=== PATIENT | male | born 1980 | race Caucasian/White ===

== ENCOUNTER → 2020-01-17 | Outpatient (REF) | payer MEDICAID, SELFPAY ==
[2020-01-13 08:22] VITALS: BMI 22.4
[2020-01-17 07:45] VITALS: BP 127/74; PULSE 72; RESP 18; TEMP 36.6; O2SAT 98; BMI 21.9
--- NOTE | 2020-01-17 07:53 | EKG12_ITS ---
Test Reason : MENTAL CLEARANCE Blood Pressure : / mmHG Vent. Rate : 050 BPM Atrial Rate : 050 BPM P-R Int : 144 ms QRS Dur : 092 ms QT Int : 408 ms P-R-T Axes : 074 071 063 degrees QTc Int : 371 ms Sinus bradycardia Early repolarization Otherwise normal ECG Confirmed by HAO HESS ([id number]), assignment desk editor RUDDY JARAMILLO ([id number]) on 01/21/2020 2:04:28 PM Referred By: ED Confirmed By:HAO HESS
[2020-01-17 08:14] LABS: Bacteria 0 SEEN /hpf (None Seen); Squamous Epithelial Cells - UA 0 SEEN /hpf (0-5)
[2020-01-17 08:28] LABS: Absolute Lymphocyte Count 1.44 X10^3/uL (0.83-4.51); Absolute Neutrophil Count 3.4 X10^3/uL (2.0-7.7); Basophil# 0.06 X10^3/uL; Basophil% 1.1 % (0-1); Eosinophil# 0.19 X10^3/uL; Eosinophils% 3.4 % (0-5); Hematocrit 48.8 % (40-54); Hemoglobin 15.9 g/dL (13.0-16.5); Lymphocyte # 1.44 X10^3/ul (4.0); Lymphocyte % 25.9 % (19-41); Mean Corp Hgb Conc 32.6 g/dL (32-36); Mean Corpuscular Hgb 28.8 pg (27.0-32.0); Mean Corpuscular Volume 88.4 fL (80-94); Mean Platelet Vol. 10.1 fl (6.2-12.0); Monocyte# 0.49 X10^3/uL; Monocyte% 8.8 % (0-10); NRBC Flagged by Analyzer 0 % (0-5); Neutrophil # 3.38 X10^3/uL (2.7-7.7); Neutrophil % 60.6 % (47-70); Platelet Count 224 K/mm3 (150-450); RBC Distribution Width CV 13.9 % (11.6-14.6); Red Blood Count 5.52 M/mm3 (4.6-6.2); White Blood Count 5.6 K/mm3 (4.4-11.0)
--- NOTE | 2020-01-17 08:29 | ED.VIS.GEN ---
History of Present Illness Chief Complaint: Suicidal Informant: Patient Narrative: 39-year-old male with no significant past medical history presents with concern for suicidal ideation. Patient was arrested 2 days ago and prior to being arrested had placed a bag over his head in an attempt to kill himself. States that he has felt suicidal since this time in the [facility] but is just now alerting staff to this issue. Denies any further attempts. States he has felt suicidal before in the past. Has no current plan at this time given his incarceration. Denies any drugs or alcohol. Past Medical History - Allergies and Home Meds Allergies/Adverse Reactions: Allergies No Known Allergies Allergy (Verified 01/17/20 07:47) Primary Care Physician: [facility] Doctor,Out of [NON-STAFF] - Prior records reviewed: Yes Past Medical History: None Surgical History: no surgical history Smoking Status: Current some day smoker Alcohol: None Drugs: None Review of Systems General: Denies: Chills, Fever, Sweats Eyes: Denies: Visual changes - bilaterally, Diplopia ENT: Denies: Rhinorrhea, Sore throat Cardiovascular: Denies: Chest pain, Palpitations Respiratory: Denies: Dyspnea, Cough, Dyspnea on exertion Gastrointestinal: Denies: Abdominal pain, Nausea, Vomiting, Diarrhea, Melena, Hematochezia Genitourinary: Denies: Dysuria, Hematuria, Frequency Musculoskeletal: Denies: Back pain, Extremity Pain Skin: Denies: Rash, Wounds Neurological: Denies: Headache, Weakness, Numbness Psych: Reports: Suicidal thoughts, Suicidal ideations Physical Exam Vital Signs/Narrative: Vital Signs Temp Pulse Resp BP Pulse Ox 01/17/20 07:45 98 F 72 18 127/74 H 98 Inital Vital Signs reviewed: Yes General: Well nourished, Well developed, No Acute Distress Head: Normocephalic, - - Evidence of well-healing laceration to the forehead without surrounding erythema. Eyes: Perrl, EOMI ENT: Moist mucous membranes, No rhinorrhea Neck: Supple, Nontender Cardiovascular: Regular rate, Regular rhythm, No murmurs Respiratory: No distress, CTA bilaterally, Chest nontender Abdomen: Soft, Nontender, Nondistended, Normal bowel sounds Back: Nontender, Normal Inspection Extremities: Nontender, No edema Skin: Normal color, No rash Neurological: Alert, Oriented x3, Cranial nerves II-XII grossly intact, Normal Strength, Normal Sensation Psychological: Normal affect, Normal Mood Diagnostic/Tx/Re-eval - Rhythm Strip Rhythm Strip: Sinus Bradycardia Rate: 50 Ectopy: None - EKG Initial EKG Interpretation: Sinus Bradycardia Prior: No Prior - Medical Decision Making Presents for suicidal ideation and medical clearance. Labs pending. EKG shows no evidence of ischemia. Lab work within normal limits other than a mildly elevated bilirubin. Patient has no abdominal pain or jaundice on exam. Advised that he needs to follow this up once he is done with incarceration. Patient also positive for marijuana otherwise drug screen negative. Patient will be released into the care of correctional facility awaiting placement for psychiatric dilation. Patient stable at time of discharge. ED Disposition - Plan for ED Patient: Disposition: Home or Assisted Living Diagnosis: Suicidal ideation, Hyperbilirubinemia Instructions: Total Bilirubin Blood, ED Depression Referrals: [facility] Doctor,Out of [NON-STAFF] -
[2020-01-17 08:36] LABS: AST(SGOT) 16 U/L (15-37); Alanine Aminotransfer ALT/SGPT 29 U/L (16-61); Albumin, Serum 3.8 g/dL (3.2-5.0); Alkaline Phosphatase 97 U/L (45-117); Anion Gap 5 (5-15); BUN 14 mg/dL (7-18); BUN/Creat Ratio 13.6 RATIO (10-20); Bilirubin, Direct 0.33 mg/dL (0.00-0.30); Calcium,Total 8.8 mg/dL (8.5-10.1); Chloride 107 mmol/L (98-107); Creatinine, Serum 1.03 mg/dL (0.70-1.30); EST Glomerular Filtration Rate 86 mL/min (>60); Est Glom Filt Rate - Afr Amer 104 mL/min (>60); Estimated Creatinine Clearance 88.06 ml/min; Globulin 3.6 g/dL (2.2-4.2); Glucose 94 mg/dL (74-106); Potassium 4.1 mmol/L (3.5-5.1); Protein, Total 7.4 g/dL (6.4-8.2); Sodium Level 141 mmol/L (136-145)
[2020-01-17 08:44] VITALS: RESP 16
[2020-01-17 08:54] LABS: Color, Urine Yellow (Yellow); Glucose, Dipstick Normal (Normal); Ketone-Dipstick Negative (Negative); Leukocyte Esterase-Dipstick Negative /ul (Negative); Nitrite-Dipstick Negative (Negative); Occult Blood-Urine 10 /ul (Negative); Protein-Dipstick Negative (Negative); Urine Bilirubin Dipstick Negative (Negative); Urine Clarity Clear (Clear); Urine Urobilinogen 4 mg/dl (Normal); Urine pH 6.5 (5.0 - 8.0)
[2020-01-17 09:02] LABS: Amorphous Sediment 1+; Mucous, Urine 1+ /hpf (<or=2+); Red Blood Cells-Urine 0-5 SEEN /hpf (0-5); White Blood Cells 0-5 SEEN /hpf (0-5)
[2020-01-17 09:12] LABS: Alcohol, Blood (Medical)-Serum < 3.0 mg/dL
[2020-01-17 09:18] LABS: Amphetamine Urine VISTA NEGATIVE (<1000 ng/mL); Barbiturate Urine VISTA NEGATIVE (< 200 ng/mL); Benzodiazepine Urine VISTA NEGATIVE (< 200 ng/mL); Cocaine Urine VISTA NEGATIVE (< 300 ng/mL); Ecstacy Urine VISTA NEGATIVE (< 500 ng/mL); Methadone Urine VISTA NEGATIVE (< 300 ng/mL); PCP Urine VISTA NEGATIVE (< 25 ng/mL); THC Urine VISTA POSITIVE (< 50 ng/mL); Vista UDS pH Range 6
== END | disposition home or self-care (01) ==
LOC: EDREF 15:27
PROVIDERS: Emergency Provider Emergency Medicine; Visit Provider Emergency Medicine
DX: R45.851 Suicidal ideations (principal); R17 Unspecified jaundice; F17.200 Nicotine dependence, unspecified, uncomplicated
CPT/HCPCS: 80048; 80076; 80307; 80320; 81001; 85025; 87635; 93005; 94799; 99283; G2023; G0480; U0003